=== PATIENT | female | born 1985 | race Two or more races ===

== ENCOUNTER 2020-11-19 08:04 | Outpatient (CLI) | payer OTHER ==
[2020-11-19] MEDS ORDERED: DOXY50TA9 PO (08:57)
== END 2020-11-19 23:59 | disposition home or self-care (01) ==
LOC: STAR 08:04
PROVIDERS: ATTEND Obstetrics & Gynecology
DX: Z02.9 Encounter for administrative examinations, unspecified (principal)

== ENCOUNTER 2020-11-25 09:55 | Day surgery (SDC) | payer OTHER ==
[~2020-11-25] VITALS: Ht 167.6 cm; Wt 89.9 kg
[~2020-11-25 09:55] MED LIST: BUPIVACAINE/PF 0.25% ONE; DOXY50TA9 PO; EPINEPHRINE 1 MG/ML, 1ML ONE
[2020-11-25 10:26] VITALS: BP 117/77
[2020-11-25] MEDS ORDERED: CHLORHEXIDINE 15 ML UDC ONE (10:26)
[2020-11-25 10:45] LABS: HCG UR SG 1.018 (1.003-1.030)
[2020-11-25] MEDS ORDERED: CHLORHEXIDINE 15 ML UDC PO ONE (11:00)
[2020-11-25] MEDS ORDERED: LACTATED RINGERS 1,000 ML IV SCH (11:00)
[2020-11-25] MEDS ORDERED: MIDAZOLAM 1 MG/ML, 2ML ONE (12:00)
[2020-11-25] MEDS ORDERED: FENTANYL PF 100 MCG/2ML ONE (12:00)
[2020-11-25] MEDS ORDERED: ACETAMINOPHEN 325 MG TABLET PO PRN (13:00)
[2020-11-25] MEDS ORDERED: hydrALAzine 20 MG/ML, 1ML IV PRN (13:00)
[2020-11-25] MEDS ORDERED: HYDROmorphone 2 MG/ML, 1ML IVPush PRN (13:00)
[2020-11-25] MEDS ORDERED: KETOROLAC 30 MG/1 ML IV PRN (13:00)
[2020-11-25] MEDS ORDERED: OXYcodone 5 MG/5 ML ORAL.SOL UDC PO PRN (13:00)
[2020-11-25] MEDS ORDERED: DIAZEPAM 5 MG/ML, 2ML IVPush PRN (13:00)
[2020-11-25] MEDS ORDERED: PROMETHAZINE 25 MG/ML, 1ML IV PRN (13:00)
[2020-11-25] MEDS ORDERED: LABETALOL 5MG/ML, 20ML IV PRN (13:00)
[2020-11-25] MEDS ORDERED: ALBUTEROL SULFATE 2.5 MG/3 ML NPPB PRN (13:00)
[2020-11-25] MEDS ORDERED: MEPERIDINE/PF 25MG/0.5ML IVPush PRN (13:00)
[2020-11-25] MEDS ORDERED: FENTANYL PF 100 MCG/2ML IV PRN (13:00)
[2020-11-25] MEDS ORDERED: PROPOFOL 10 MG/ML, 20ML ONE (13:24)
[2020-11-25] MEDS ORDERED: CEFAZOLIN 1,000 MG ONE (13:24)
[2020-11-25] MEDS ORDERED: ONDANSETRON 2MG/ML, 2ML ONE (13:24)
[2020-11-25] MEDS ORDERED: NEOSTIGMINE 1 MG/ML, 10ML ONE (13:24)
[2020-11-25] MEDS ORDERED: SUCCINYLCHOLINE 20 MG/ML, 10ML ONE (13:24)
[2020-11-25] MEDS ORDERED: DEXAMETHASONE 4 MG/ML, 1ML ONE (13:24)
[2020-11-25] MEDS ORDERED: GLYCOPYRROLATE 0.2MG/1ML, 5ML ONE (13:24)
[2020-11-25] MEDS ORDERED: ROCURONIUM 10MG/ML,5ML ONE (13:24)
== END 2020-11-25 14:30 | disposition home or self-care (01) ==
LOC: OUT 09:55
PROVIDERS: ATTEND Obstetrics & Gynecology
DX: N90.7 Vulvar cyst (principal); L72.0 Epidermal cyst; Z79.899 Other long term (current) drug therapy
CPT/HCPCS: 11422; 81025; 88304; J0171; J0330; J0690; J1100; J2250; J2405; J2704; J2710; J3010; J7120; 88305